=== PATIENT | female | born 2000 | race Two or more races ===

== ENCOUNTER 2020-02-17 14:20 | Inpatient (IN) | payer OTHER ==
[2020-02-17 15:27] LABS: INR 0.97 (0.83-1.09); PROTHROMBIN TIME (PATIENT) 11.4 SEC (9.7-13.0)
[2020-02-17 15:30] LABS: ACTIVATED PTT 27.2 SECONDS (25.2-36.5)
[2020-02-17 15:39] LABS: BASO % 0.4 % (0-2.0); EOS % 1.4 % (0-4.5); HEMATOCRIT 32.5 % (32.4-45.2); LYMPH % 15.1 % (8-40); MCH 31.3 pg (25.7-33.7); MCHC 33.7 g/dl (32.0-36.0); MEAN CELL VOLUME 92.6 fl (80-96); MEAN PLT VOLUME 8.7 fl (7.5-11.1); MONO % 7.3 % (3.8-10.2); NEUT % 75.8 % (42.8-82.8); PLATELET COUNT 252 K/MM3 (134-434); RBC 3.51 M/mm3 (3.60-5.2); RDW 14.2 % (11.6-15.6)
[2020-02-17 15:44] LABS: BLOOD UREA NITROGEN 4.4 mg/dL (7-18); CALCIUM 8.9 mg/dL (8.5-10.1); CREATININE 0.6 mg/dL (0.55-1.3); POTASSIUM 3.7 mmol/L (3.5-5.1)
[2020-02-17 15:47] VITALS: BMI 24.0
[2020-02-17] MEDS: DEXTROSE 5%-LACTATED RINGERS 1,000 ML IV SCH ×2 (17:00→22:30)
[2020-02-17] MEDS ORDERED: BUTORPHANOL TARTRATE 2 MG/ML VIAL IVPB PRN (17:42)
--- NOTE | 2020-02-17 17:47 | HP ---
Past Medical History - Primary Care Physician PCP:: Edwina Boothe - Admission Chief Complaint: postdates History of Present Illness: 19 yo G1 EDC EGA 40+ week dmitted for induction History Source: Patient Limitations to Obtaining History: No Limitations - Past Medical History ...: 2 ...Para: 0 ...Term: 0 ...: 0 ...Spon : 0 ...Induced : 1 ...Living Children: 0 ...Multiple Gestation: 0 ...LMP: 05/09/19 ... Weeks Gestation by Dates: 40.4 ...EDC by Dates: 02/13/20 ...EDC by Sono: 02/13/20 - Past Surgical History Past Surgical History: Yes: None Hx Myomectomy: No Hx Transabdominal Cerclage: No - Smoking History Smoking history: Never smoked Have you smoked in the past 12 months: No - Alcohol/Substance Use Hx Alcohol Use: No History of Substance Use: reports: None - Social History Usual Living Arrangement: Yes: With Significant Other Home Medications - Allergies Allergies/Adverse Reactions: Allergies Allergy/AdvReac Type Severity Reaction Status Date / Time peanut Allergy Verified 02/17/20 15:06 - Home Medications Home Medications: Ambulatory Orders Mv-Mn/Iron/FA/Herbal/Digestive [ One Tablet] 1 each PO DAILY 02/17/20 Physical Exam - Maternity Vital Signs: Vital Signs Temperature 98 F 02/17/20 15:38 Pulse Rate 72 02/17/20 15:38 Respiratory Rate 20 02/17/20 15:38 Blood Pressure 115/69 02/17/20 15:38 O2 Sat by Pulse Oximetry (%) - Abdominal Exam/OB Fundal Height: 40 Number of Fetuses: Single Presentation: Vertex Contractions: Yes Heart Rate Location: [facility] Category: I - Vaginal Exam/OB Dilatation (cm): 2 Effacement (%): 80 Amniotic Membrane Status: Intact Presentation: Vertex/Position Station: 0 - Physical Exam Musculoskeletal: Yes: WNL Extremities: Yes: WNL Edema: No Psychiatric: Yes: WNL, Alert - Labs Lab Results: CBC, BMP 02/17/20 14:10 02/17/20 14:10 Hemorrhage Risk Assessment - Risk Factors Risk Score: 0 Risk Level: Low Risk Problem List - Problems (1) Post term Problems reviewed: Yes Code(s): O48.0 - POST-TERM Qualifiers: Post-term type: 40-42 weeks gestation Qualified Code(s): O48.0 - Post-term (2) 40 weeks gestation of Problems reviewed: Yes Code(s): Z3A.40 - 40 WEEKS GESTATION OF (3) High risk teen in third trimester Problems reviewed: Yes Code(s): O09.893 - SUPERVISION OF OTHER HIGH RISK PREGNANCIES, THIRD TRIMESTER Assessment/Plan Teen Cat 1 GBS contractions Q3 Plan admit
--- NOTE | 2020-02-17 23:03 | PN ---
Ante-Partal Exam - Subjective Subjective: Pt with inc contraction Vital Signs: Vital Signs Temperature 98.0 F 02/17/20 22:00 Pulse Rate 75 02/17/20 22:00 Respiratory Rate 18 02/17/20 22:00 Blood Pressure 124/77 02/17/20 22:00 O2 Sat by Pulse Oximetry (%) Bleeding: No Bleeding Description: Moderate Headache: No Visual changes: No Right upper quadrant pain: No - Contractions Contractions: Yes Regularity: Irregular Monitor Mode: External - Exam during Labor Variability: Moderate Heart Rate Location: [facility] Category: I Monitor Decelerations: None Exam: Vaginal Dilatation (cm): 2 Effacement (%): 80 Amniotic Membrane Status: Ruptured Amniotic Fluid: Clear Presentation: Vertex Station: 0 - Intrapartum Hemorrhage Risk Medium Risk Factors: None High Risk Factors: None Risk Score: 0 Risk Level: Low Risk - Assessment/Plan Assessment/Plan: Cat 1 irregular contraction Plan Pit aug
[2020-02-17] MEDS ORDERED: OXYTOCIN 30 UNITS in 0.9% NS 30 UNIT/500 ML INFUS.BAG IVPB SCH (23:15)
[2020-02-18] MEDS ORDERED: OXYTOCIN 30 UNITS in 0.9% NS 30 UNIT/500 ML INFUS.BAG IVPB ONE (00:29)
[2020-02-18] MEDS ORDERED: BUTORPHANOL TARTRATE 2 MG/ML VIAL ONE (02:39)
[2020-02-18] MEDS: DEXTROSE 5%-LACTATED RINGERS 1,000 ML IV SCH (06:00)
[2020-02-18] MEDS ORDERED: PCA PUMP NR ONE (06:04)
[2020-02-18] MEDS ORDERED: FENTANYL/BUPIVACAINE/NS/PF - PCEA - 50 ML DISP.SYRIN EP ONE (06:05)
[2020-02-18] MEDS ORDERED: NALOXONE HCL 0.4 MG/ML VIAL IVPUSH PRN (06:41)
[2020-02-18] MEDS ORDERED: FENTANYL/BUPIVACAINE/NS/PF - PCEA - 50 ML DISP.SYRIN EP SCH (06:45)
--- NOTE | 2020-02-18 07:25 | PN ---
Ante-Partal Exam - Subjective Subjective: Pt doing well on Pit dec SP stadol Vital Signs: Vital Signs Temperature 97.9 F 02/18/20 07:00 Pulse Rate 71 02/18/20 06:45 Respiratory Rate 20 02/18/20 06:45 Blood Pressure 119/75 02/18/20 06:45 O2 Sat by Pulse Oximetry (%) 100 02/18/20 06:45 Bleeding: No Headache: No Visual changes: No Right upper quadrant pain: No - Contractions Contractions: Yes Regularity: Irregular Monitor Mode: External - Exam during Labor Variability: Moderate Heart Rate Location: [facility] Category: I Monitor Decelerations: None Exam: Vaginal Dilatation (cm): 3-4 cm Amniotic Membrane Status: Ruptured Amniotic Fluid: Clear Presentation: Vertex - Intrapartum Hemorrhage Risk Medium Risk Factors: None High Risk Factors: None Risk Score: 0 Risk Level: Low Risk - Assessment/Plan Assessment/Plan: Cat 1 Post dates teen desires epidural Plan Epidural
[2020-02-18] MEDS ORDERED: OXYTOCIN 20 UNITS in 0.9% NS 20 UNIT/1,000 ML INFUS.BAG IV ONE ×2 (09:29→13:46)
[2020-02-18] MEDS ORDERED: LIDOCAINE HCL 1% PRESERVATIVE FREE - 30ML VIAL ONE ×2 (09:29→09:38)
[2020-02-18] MEDS: ACETAMINOPHEN 325 MG TABLET (FP) PO PRN (10:20)
[2020-02-18] MEDS ORDERED: ACETAMINOPHEN 325 MG TABLET (FP) ONE (10:20)
[2020-02-18] MEDS ORDERED: IBUPROFEN 600 MG TABLET (FP) PO ONE (10:20)
[2020-02-18] MEDS: IBUPROFEN 600 MG TABLET (FP) PO PRN (10:20)
[2020-02-18] MEDS ORDERED: BENZOCAINE 20% 57 GM BOTTLE TP PRN (10:39)
[2020-02-18] MEDS ORDERED: METHYLERGONOVINE MALEATE 0.2 MG/1 ML AMP IM PRN (10:39)
[2020-02-18] MEDS ORDERED: BENZOCAINE 28 GM HEMORRHOIDAL OINTMENT PR PRN (10:39)
[2020-02-18] MEDS ORDERED: WITCH HAZEL 50% (TUCKS) 40 PAD/JAR PAD TP PRN (10:39)
[2020-02-18] MEDS ORDERED: BISACODYL 10 MG SUPP.RECT PR PRN (10:39)
[2020-02-18 10:41] LABS: CORD BASE EXCESS -0.1 mmol/L (0-2); CORD HCO3 25.6 mmHg (20-29); CORD PCO2 45.9 mmHg (30-78); CORD pH 7.365 (7.14-7.44)
--- NOTE | 2020-02-18 10:41 | PN ---
Delivery - Delivery Vaginal Delivery: No Problems, Spontaneous (suprapubic and lay) Maneuvers: suprapubic lay manuver EBL (cc): 250 Delivery, Single - [place] Feeding Plan Initial Plan: Elected not to breastfeed exclusively throughout hospitalization
[2020-02-19 07:44] LABS: BASO % 0.3 % (0-2.0); EOS % 1.3 % (0-4.5); HEMATOCRIT 29.4 % (32.4-45.2); HEMOGLOBIN 10.1 GM/dL (10.7-15.3); LYMPH % 10.9 % (8-40); MCH 32.1 pg (25.7-33.7); MCHC 34.5 g/dl (32.0-36.0); MEAN CELL VOLUME 93.1 fl (80-96); MEAN PLT VOLUME 8.5 fl (7.5-11.1); MONO % 5.9 % (3.8-10.2); NEUT % 81.6 % (42.8-82.8); PLATELET COUNT 212 K/MM3 (134-434); RBC 3.16 M/mm3 (3.60-5.2); RDW 13.9 % (11.6-15.6); WHITE BLOOD COUNT 16.7 K/mm3 (4.0-10.0)
[2020-02-19] MEDS: ACETAMINOPHEN 325 MG TABLET (FP) PO PRN (19:05)
[2020-02-19] MEDS: IBUPROFEN 600 MG TABLET (FP) PO PRN (19:10)
--- NOTE | 2020-02-20 07:14 | DS ---
Physical Exam-[employer] Vital Signs: Vital Signs Temperature 98.0 F 02/19/20 20:10 Pulse Rate 84 02/19/20 20:10 Respiratory Rate 18 02/19/20 20:10 Blood Pressure 110/59 L 02/19/20 20:10 O2 Sat by Pulse Oximetry (%) 98 02/19/20 20:10 Constitutional: Yes: Well Nourished, No Distress Gastrointestinal: Yes: WNL, Soft ....Post : Yes: Uterus firm, Uterus non-tender Breast(s): Yes: WNL Musculoskeletal: Yes: WNL Extremities: Yes: WNL Edema: No Neurological: Yes: WNL, Alert, Oriented Labs: CBC, BMP 02/19/20 07:02 02/17/20 14:10 Delivery - Delivery Vaginal Delivery: No Problems, Spontaneous (suprapubic and lay) Maneuvers: suprapubic lay manuver Type of Anesthesia: Epidural Episiotomy/Laceration: None EBL (cc): 250 Delivery, Single - Stages of Labor Date 1st Stage Initiatied: 02/18/20 Time 1st Stage Initiated: 02:45 Date 2nd Stage Initiated: 02/18/20 Time 2nd Stage Initiated: 09:40 Date of Delivery: 02/18/20 Time of Delivery: 09:53 Time Placenta Delivered: 09:58 - Condition of Infant Front End Driver/School Bus Driver/Custodian Present: No Gender: Male Weight: 9 lb 3 oz Position: OA Total Hours ROM (Hrs/Mins): 11Hrs/13Mins - 1 Minute Total Score: 9 5 Minutes Total Score: 9 - [place] Feeding Plan Initial Plan: Elected not to breastfeed exclusively throughout hospitalization Discharge Summary Problems reviewed: Yes Reason For Visit: INDUCTION OF LABOR Current Active Problems 40 weeks gestation of (Acute) High risk teen in third trimester (Acute) Post term (Acute) Procedures: Principal: Normal vginal delivery Hospital Course: unremarkable - Instructions Disposition: HOME - Home Medications Comprehensive Discharge Medication List: Ambulatory Orders Mv-Mn/Iron/FA/Herbal/Digestive [ One Tablet] 1 each PO DAILY 02/17/20
[2020-02-20] MEDS: IBUPROFEN 600 MG TABLET (FP) PO PRN (09:31)
[2020-02-20] MEDS: ACETAMINOPHEN 325 MG TABLET (FP) PO PRN (09:31)
[2020-02-20 10:52] VITALS: BP 120/72; PULSE 66; TEMP 97.4
== END 2020-02-20 16:30 | disposition home or self-care (01) | DRG 560 ==
LOC: JLDR 14:20 → J3W 02-18 14:30
PROVIDERS: ADMIT Obstetrics & Gynecology; ATTEND Obstetrics & Gynecology
PROC: 10E0XZZ Delivery of Products of Conception, External Approach (ICD-10-PCS; principal; 2020-02-18)
DX: O48.0 Post-term pregnancy (principal); Z3A.40 40 weeks gestation of pregnancy; Z37.0 Single live birth
CPT/HCPCS: 36415; 36600; 59409; 80048; 82803; 85025; 85610; 85730; 86780; 86850; 86900; 86901; 87389; U0003

== ENCOUNTER 2021-07-17 08:38 | Emergency (ER) | payer OTHER ==
[2021-07-17 08:54] VITALS: BMI 19.6
[2021-07-17] MEDS ORDERED: DEXAMETHASONE 4 MG TABLET (FP) PO ONE (09:14)
[2021-07-17] MEDS ORDERED: IBUPROFEN 600 MG TABLET (FP) PO ONE ×2 (09:14→09:22)
[2021-07-17] MEDS ORDERED: DEXAMETHASONE SOD PHOSPHATE 10 MG/1 ML VIAL ONE (09:21)
[2021-07-17 09:53] VITALS: BP 100/58; PULSE 91; TEMP 99.2
[2021-07-17 10:53] LABS: THROAT:GRP A STREP NOT DETECTED (NOTDETECTED)
[2021-07-18 15:07] LABS: SARS-CoV-2 NAA Not Detected (Not Detected)
== END 2021-07-17 10:12 | disposition home or self-care (01) ==
LOC: JER 08:38
DX: J06.9 Acute upper respiratory infection, unspecified (principal)
CPT/HCPCS: 87651; 99283-25; C9803; U0003; U0005

== ENCOUNTER 2021-07-19 18:00 | Emergency (ER) | payer OTHER ==
[2021-07-19 18:06] VITALS: BP 111/71; PULSE 96; TEMP 98.9; BMI 19.6
[2021-07-19] MEDS ORDERED: KETOROLAC TROMETHAMINE 30 MG/1 ML VIAL IM ONE (19:34)
[2021-07-19] MEDS ORDERED: KETOROLAC TROMETHAMINE 30 MG/1 ML VIAL ONE (19:36)
== END 2021-07-19 20:17 | disposition home or self-care (01) ==
LOC: JERFT 18:00 → JER 18:00
PROC: 3E0233Z Introduction of Anti-inflammatory into Muscle, Percutaneous Approach (ICD-10-PCS; principal; 2021-07-19)
DX: J02.9 Acute pharyngitis, unspecified (principal)
CPT/HCPCS: 96372; 99284-25

== ENCOUNTER 2023-10-06 14:10 | Emergency (ER) | payer OTHER ==
[2023-10-06 14:21] VITALS: BP 112/71; PULSE 97; RESP 20; TEMP 98.8; BMI 20.7
[2023-10-06 15:13] LABS: THROAT:GRP A STREP NOT DETECTED (NOTDETECTED)
[2023-10-06] MEDS ORDERED: DOXYCYCLINE HYCLATE 100 MG CAPSULE PO ONE (15:37)
[2023-10-06] MEDS ORDERED: cefTRIAXone SODIUM 1 GM VIAL ONE (15:39)
[2023-10-06] MEDS ORDERED: LIDOCAINE HCL 1%, 10 MG/ML (20ML VIAL) ONE (15:42)
[2023-10-06] MEDS: DOXYCYCLINE HYCLATE 100 MG CAPSULE PO ONE (15:55)
== END 2023-10-06 16:18 | disposition home or self-care (01) ==
LOC: JERFT 14:10
DX: J02.9 Acute pharyngitis, unspecified (principal); Z20.822 Contact with and (suspected) exposure to COVID-19
CPT/HCPCS: 0241U-QW; 36415; 87070; 87651; 99284-25

== ENCOUNTER 2023-11-12 11:00 | Emergency (ER) | payer OTHER ==
[2023-11-12 11:09] VITALS: BP 104/78; PULSE 70; BMI 20.7
[2023-11-12] MEDS ORDERED: METOCLOPRAMIDE HCL INJECTION 10 MG/2 ML VIAL ONE (11:50)
[2023-11-12] MEDS ORDERED: ACETAMINOPHEN INJECTION 100 ML IVPB ONE (11:51)
[2023-11-12] MEDS: SODIUM CHLORIDE 0.9% 500 ML INFUS.BAG IV ONE (12:00)
[2023-11-12] MEDS: METOCLOPRAMIDE HCL INJECTION 10 MG/2 ML VIAL IVPUSH ONE (12:00)
[2023-11-12] MEDS: ACETAMINOPHEN 1000 MG/100 ML BAG IVPB ONE (12:00)
[2023-11-12 12:34] LABS: BASO % 0.5 % (0-2.0); EOS % 0.9 % (0-4.5); HEMATOCRIT 37.6 % (32.4-45.2); HEMOGLOBIN 12.6 GM/dL (10.7-15.3); LYMPH % 22.8 % (8-40); MCH 30.6 pg (25.7-33.7); MCHC 33.5 g/dl (32.0-36.0); MEAN CELL VOLUME 91.2 fl (80-96); MEAN PLT VOLUME 7.9 fl (7.5-11.1); MONO % 6.2 % (3.8-10.2); NEUT % 69.6 % (42.8-82.8); PLATELET COUNT 232 10^3/uL (134-434); RBC 4.12 M/mm3 (3.60-5.2); RDW 13.3 % (11.6-15.6); WHITE BLOOD COUNT 8.8 K/mm3 (4.0-10.0)
[2023-11-12 12:40] LABS: POTASSIUM 3.6 mmol/L (3.5-5.1)
[2023-11-12 12:42] LABS: CALCIUM 8.8 mg/dL (8.5-10.1); EPI CELLS 21 /uL (0-25.1); HYALINE CASTS 0 /uL (0-3.1); URINE APPEARANCE CLEAR; URINE BACTERIA 68 /uL (0-1359); URINE BILIRUBIN NEGATIVE (NEGATIVE); URINE COLOR YELLOW; URINE GLUCOSE (UA) NEGATIVE (NEGATIVE); URINE KETONE NEGATIVE (NEGATIVE); URINE LEUK ESTERASE 1+ (NEGATIVE); URINE NITRITE NEGATIVE (NEGATIVE); URINE PROTEIN NEGATIVE (NEGATIVE); URINE RBC 12 /uL (0-23.9); URINE WBC 29 /uL (0-25.8)
[2023-11-12 12:43] LABS: ALBUMIN 3.7 g/dl (3.4-5.0); BLOOD UREA NITROGEN 10.9 mg/dL (7-18)
[2023-11-12 12:46] LABS: CREATININE 0.7 mg/dL (0.55-1.3)
[2023-11-12 12:47] LABS: TOT PROT 7.4 g/dl (6.4-8.2)
[2023-11-12 12:48] LABS: BILIRUBIN,TOTAL 0.6 mg/dL (0.2-1)
[2023-11-12 13:29] VITALS: RESP 19; TEMP 98.4
== END 2023-11-12 14:01 | disposition home or self-care (01) ==
LOC: JER 11:00
PROC: 3E033NZ Introduction of Analgesics, Hypnotics, Sedatives into Peripheral Vein, Percutaneous Approach (ICD-10-PCS; principal; 2023-11-12)
PROC: 3E033GC Introduction of Other Therapeutic Substance into Peripheral Vein, Percutaneous Approach (ICD-10-PCS; 2023-11-12)
DX: R55 Syncope and collapse (principal); R51.9 Headache, unspecified; Y99.0 Civilian activity done for income or pay; Z20.822 Contact with and (suspected) exposure to COVID-19
CPT/HCPCS: 0241U-QW; 36415; 70450-TC; 80053; 81003; 82962; 84484; 84703; 85025; 87086; 93005; 93010; 96374; 96375; 99285-25; J0131